=== PATIENT | female | born 1960 | race African-American/Black ===

== ENCOUNTER 2019-01-12 05:30 | Emergency (ER) | payer OTHER ==
[~2019-01-12] VITALS: Ht 160 cm; Wt 59.0 kg
[2019-01-12 08:00] VITALS: BP 93/45
== END 2019-01-12 11:48 | disposition home or self-care (01) ==
LOC: ER 05:30
DX: T69.9XXA Effect of reduced temperature, unspecified, initial encounter (principal); X31.XXXA Exposure to excessive natural cold, initial encounter; Y93.89 Activity, other specified; Y92.89 Other specified places as the place of occurrence of the external cause; Y99.8 Other external cause status